=== PATIENT | female | born 1950 | race Caucasian/White ===

== ENCOUNTER → 2023-09-25 12:56 | Outpatient (REF) | payer OTHER, SELFPAY ==
[2023-09-25 09:31] LABS: Potassium 4.2 mmol/L (3.5-5.1)
== END ==
LOC: RESEARCH 12:56
PROVIDERS: REFERRING PHYSICIAN Internal Medicine Cardiovascular Disease
DX: I50.20 Unspecified systolic (congestive) heart failure (principal)
CPT/HCPCS: 36415; 82565; 84132

== ENCOUNTER 2025-05-09 16:25 | Inpatient (IN) | payer MEDICARE, SELFPAY ==
[2025-05-09] VITALS (15 sets, daily range): BP systolic 106–165; BP diastolic 64–89; BMI 36.9
--- NOTE | 2025-05-09 07:58 | ITS.CL.CATH ---
Tobacco Stripper Hand - Catheterization
Cardiac Catheterization
Procedure Report:
LEFT HEART CATHETERIZATION
Date of Procedure: May 09, 2025
Referring: Romel Larson MD
PROCEDURES:
1. Left heart catheterization, coronary angiogram.
2. Moderate sedation.
3. Selective graft angiography
INDICATION: This is a 74-year-old diabetic female with aggressive coronary artery disease. She has known chronic total occlusion of the right coronary artery as well as prior stenting of the proximal to mid circumflex and proximal to mid LAD. In
July 2018 she experienced crescendo anginal symptoms and was referred for coronary angiography in the setting of a non-ST segment elevation myocardial infarction. The right coronary artery was found to be 100% occluded (known from prior
studies) and the circumflex had a new high-grade ostial stenosis with moderate diffuse mid LAD atherosclerosis. She was chest pain-free and the decision was made to refer her for surgical revascularization. She was seen by CT surgery and underwent
coronary artery bypass grafting on 07/17/2018 with a LIMON-diagonal and SVG-apical LAD beyond the stents. The circumflex and RCA distal vessels were not surgically revascularized as adequate targets could not be identified. She returned to the
catheterization laboratory several days later and underwent successful stenting of the ostial circumflex with placement of a 3.0 x 15 mm Xience stent. She has been having progressive dyspnea on exertion with PET CT stress from 05/03/25 showing
large area of moderately reduced anteroseptal perfusion, mildly reduced inferior perfusion, and moderately reduced septal perfusion defects which are reversible consistent with ischemia. She is now being referred for left heart catheterization and
coronary angiogram.
ACCESS: Left radial artery, 6 Indonesian sheath, under ultrasound guidance
HEMODYNAMICS : (mmHg)
AO (s/d) : 153/80
LVEDP: 35
CORONARY ANGIOGRAPHY
Dominance: Right
LEFT MAIN: Normal
LEFT ANTERIOR DESCENDING: The LAD arises normally from the left main. There is a 60% stenosis in the mid LAD beyond the proximal stent. The LIMON graft to the diagonal branch is widely patent as described below. There are overlapping mid to distal
LAD stents which are 100% occluded but the apical LAD fills via the SVG-LAD apex.
CIRCUMFLEX: The stent at the ostium of the circumflex remains widely patent. The overlapping proximal to mid circumflex stents also remain widely patent. OM1 is small and has an 80% proximal stenosis. OM 2 is larger and widely patent. The CAD
appears stable when compared angiographically to prior cath from 2022.
RIGHT CORONARY ARTERY: Known to be 100% occluded
GRAFT ANGIOGRAPHY:
1. LIMON-diagonal: The LIMON graft to the largest diagonal branch remains patent.
2. SVG-apical LAD: The saphenous vein graft to the apical LAD remains widely patent. The saphenous vein graft is large and patulous and is anastomosed to a small caliber apical LAD. It appears similar to prior heart catheterization from 2022
SEDATION: 37 minutes of procedural sedation was utilized. IV Midazolam and IV Fentanyl were administered. An independent medical voucher clerk was present to assist with and help manage the patient's level of consciousness and physiologic status.
RADIATION SUMMARY: Fluoro Time (min): 22.2, Dose (mGy): 622, DAP (Gy.cm2) : 47.5
Closure Device: There were no immediate intra-procedural complications. The sheath was pulled in the equipment operator/laborer/supervisor and a vascular-band applied to the right wrist for radial artery hemostasis using the patent hemostasis technique.
CONCLUSIONS
1. Patent LIMON and SVG grafts with significant [place] coronary artery disease. No obvious PCI targets. The CAD appears stable when compared angiographically to prior cath from 2022.
2. Significantly elevated LVEDP at 35 mmHg
RECOMMENDATIONS
1. Wean radial band per protocol. Monitor right hand perfusion and for bleeding from the radial site following removal of the vascular-band following trans-radial access.
2. Continue aggressive medical therapy and risk factor modification for secondary CAD prevention. Inpatient admission for aggressive IV diuresis given progressive dyspnea on exertion in the setting of significantly elevated LVEDP.
3. Medical optimization of goal-directed medical therapy and outpatient referral for cardiac rehab.
Bette Rosado MD, FACC, [facility]
Copy to: Romel Larson MD
[2025-05-09 10:35] LABS: Hematocrit 40.6 % (37.0-47.0); Hemoglobin 13.5 g/dL (12.0-16.0); Mean Corp Hgb Conc. 33.3 g/dL (33.0-37.0); Mean Corpuscular Volume 98.3 fL (81.0-99.0); Platelet Count 110 10^3/uL (130-400); Red Cell Dist. Width 12.8 % (11.5-14.5)
[2025-05-09 10:39] LABS: INR 1.03; PT 13.6 Sec (11.4-14.6)
[2025-05-09 10:40] LABS: APTT 27.0 Sec (23.4-35.0)
[2025-05-09 10:45] LABS: Blood Urea Nitrogen 16 mg/dl (7-17); Calcium 9.7 mg/dl (8.4-10.2); Carbon Dioxide 26 mmol/L (22-30); Chloride 107 mmol/L (98-107); Estimated Creatinine Clearance 51 ml/min; Glucose 140 mg/dl (70-99); Potassium 4.2 mmol/L (3.5-5.1); Sodium 139 mmol/L (135-145); eGFR 59.86
[2025-05-09] MEDS: LOW STRENGTH ASPIRIN 324 MG PO (11:04)
[2025-05-09] MEDS: NSS 266 ML IV (11:06)
--- NOTE | 2025-05-09 16:07 | HPS.HSE ---
Family Physician
-
Family Physician: Ml Henry MD
Chief Complaint
-
appointment for the stent due to fluid around her heart
History of Present Illness
74-year-old diabetic female with aggressive coronary artery disease. She has known chronic total occlusion of the right coronary artery as well as prior stenting of the proximal to mid circumflex and proximal to mid LAD. In July 2018 she
experienced crescendo anginal symptoms and was referred for coronary angiography in the setting of a non-ST segment elevation myocardial infarction. She has been having progressive dyspnea on exertion with PET CT stress from 05/03/25 showing large
area of moderately reduced anteroseptal perfusion, mildly reduced inferior perfusion, and moderately reduced septal perfusion defects which are reversible consistent with ischemia. She is now being referred for left heart catheterization and
coronary angiogram.
Currently before the admission she had shortness of breath any time even at rest, she has no orthopnea, she felt mild chest discomfort, pressure, non radiating, not reproducibility associated with exertion while on walking at steps, been over
increasing for the past 1 year. She used to go for follow up appoint with DR Larson, extruder operator vertical , and worsening, medications which includes lasix 40 mg BID , non complaince, spirinolactone 25 mg BID however she taking once a day, and stopped
ranolozine 2 weeks ago-by extruder operator vertical, she used to monitor her weight regularly and has no change recently.
Medical History
Past Medical History
Past Medical History: Reports CAD, HTN, Hypercholesterolemia and IDDM
Past Surgical History: Reports Orthopedic
Social History
Tobacco: Non-smoker
Alcohol: Other (4-5 days in a week couple of wine )
Drug: None
Personal:
Living: With Family
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
Family History
Family History: CAD
Allergies / Home Medications
Home Medications
bisoprolol fumarate 5 mg tablet 2.5 mg PO DAILY Blood pressure 07/31/20
Alirocumab [Praluent Pen] 150 mg SQ .Q2W ON Fridays01/23/21
aspirin 81 mg tablet 324 mg PO DAILY 09/12/22
furosemide 40 mg tablet (Lasix) 40 mg PO BID #180 tabs 09/12/22
levothyroxine 75 mcg tablet 75 mcg PO DAILY 09/12/22
omega-3 fatty acids 1,000 mg PO DAILY 09/12/22
ranolazine 500 mg tablet,extended release,12 hr 500 mg PO BID 05/09/25
spironolactone 25 mg tablet 25 mg PO BID 05/09/25
Allergies reflects when Allergies were last updated in [facility].
Home Medications with original date entered in [facility]
Allergy/Medication List:
Allergies
Allergy/AdvReac Type Severity Reaction Status Date / Time
Penicillins Allergy Rash Verified 09/12/22 07:52
Lytuhci-YYN-LsU Reductase Allergy PE PT Verified 05/09/25 16:30
Inhibitor (Fwdrbba-Ktn-Qhg MUSCLE
Reductase Inhibitor) CRAMPS
Review of Systems
-
History Source: Patient
A 12 point ROS was completed and negative except as noted: Yes
Physical Exam
Vital Signs
Vital Signs
Temp Pulse Resp BP Pulse Ox
98.5 F 68 18 126/78 97
05/09/25 10:23 05/09/25 12:10 05/09/25 10:23 05/09/25 11:06 05/09/25 12:10
Physical Exam
General: Well Developed and No Apparent Distress
HEENT: Moist mucous membranes and Oxygen
Respiratory: Clear
Cardiac: S1/S2 and Bradycardia
GI: Soft, Non Tender, Non Distended and Normal Bowel Sounds
Musculoskeletal: No Clubbing, Edema, Left Lower Extremity and Edema, Right Lower Extremity
Skin: Warm
Neuro: AO x 3
Hematologic/Lymphatic: No Lymphadenopathy
Laboratory Results
-
12/01/25 10:08
05/09/25 10:08
Laboratory Results
PT 13.6 Sec (11.4-14.6) 05/09/25 10:08
INR 1.03 05/09/25 10:08
APTT 27.0 Sec (23.4-35.0) 05/09/25 10:08
Impression/Plan
-
IMPRESSION AND PLAN:
74-year-old female with a known history of diabetes, congestive heart failure with reduced ejection fraction, hypothyroidism admitted today for the shortness of breath and underwent for left heart catheterization;
# Dyspnea secondary to congestive heart failure with reduced ejection fraction:
vitals: 122/78, CT 68, rr- 20, sa - 98%
o/e: no reproducibility of the pain, pitting edema mild ,
Hb- 13.5, BUN_ 16, GFR-59.86 , CR1.00, cr clearance 51
On today's left heart catheterization findings:
There are overlapping mid to distal LAD stents which are 100% occluded but the apical LAD fills via the SVG-LAD apex.
CIRCUMFLEX: The stent at the ostium of the circumflex remains widely patent. The overlapping proximal to mid circumflex stents also remain widely patent. OM1 is small and has an 80% proximal stenosis. OM 2 is larger and widely patent. The CAD
appears stable when compared angiographically to prior cath from 2022.
Master Sonar Technician recommendation includes:
1. Continue aggressive medical therapy and risk factor modification for secondary CAD prevention. Inpatient admission for aggressive IV diuresis given progressive dyspnea on exertion in the setting of significantly elevated LVEDP.
2. Medical optimization of goal-directed medical therapy and outpatient referral for cardiac rehab.
stain allergy-- muscle sores she is currently taking alirocumab intead of that every other week.
Cardiac PET/CT nuclear stress showing large area of mildly reduced anteroseptal perfusion, mildly reduced inferior perfusion and moderately reduced septal perfusion defects which are reversible consistent with ischemia.
Stress Risk is high risk study (>3% NM or /year)
Systolic function is moderately reduced. The ejection fraction is 29%.
CLASS 3 NYHA -- marked limitation, comfortable at rest, but less than ordinary activity, reduced to 29%
Current plan includes:
Monitor vitals,
Repeat echo
Repeat cholesterol- lipid panel
Monitor i/o
Monitor weight
Order tsh
Educate for compliance with medication,
cardiology consultation,
low sodium diet
avoid alcohol.
Continue IV Lasix 40 mg
Continue bisoprolol fumarate 2.5 mg oral
Continue spironolactone 25 mg oral
# Hyperlipidemia:
Continue alirocumab pen for her hyperlipidemia state
# Recently diagnosed type II diabetes:
Currently not on any medication
Recent HbA1c 7.1
Consult dietitian.
follow up with pcp for her blood glucose level in future
# Hypothyroidism:
Continue levothyroxine 75 mcg
# pt, ot consult.
fluid restriction 48 oz,
low cholesterol diet
DVT: Lovenox 40 mg SQ
Code: Full code
Disposition: Home
[2025-05-09] MEDS: LASIX 80 MG IV (17:27)
--- NOTE | 2025-05-09 17:53 | W.PN.UPDATE ---
Update Note
Progress Note Update
HPI: 74-year-old F with PMH CAD s/p CABG, hypothyroidism, HTN, HDL (intolerant to statin), recently diagnosed DM (A1C 7%), p/w SOB/WARD with recent outpt cardiac PET scan showing low EF at 29%.
Patient underwent left heart cath on admission, which showed 2 patent grafts, but with elevated end-diastolic pressure, hence hospitalist was requested for admission to treat acute on chronic CHF.
A/P:
# acute on chronic systolic CHF
# h/o CAD s/p CABG
Status post left heart cath on admission 05/09/2025, 2 patent grafts, but noted elevated end-diastolic pressure,
Check updated echo
Continue IV Lasix per cardiology,
Daily weights, I&O
Fluid restrict
Continue prior to admission bisoprolol and Aldactone
Card consult
# Hyperlipidemia
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
# Recently diagnosed type II diabetes
Has not yet started with medication
Recent HbA1c 7.1%
Consult dietitian for carb control diet education
Pt can follow up with PCP for diabetes management
# Hypothyroidism
Continue levothyroxine 75 mcg
DVT ppx: Lovenox SQ
FC
--- NOTE | 2025-05-09 19:14 | PTCARENOTE ---
~1600: Patient brought from [facility] via bed with laborer drying department staff. Pt AOx4, NSR 70s on tele, SBP 150s-160s, RA satting 96%. L radial TR band in place, site has some old blood in window at this time, but does not appear to be currently oozing with no
hematoma present. Hospitalist resident at bedside for assessment. Admission charting completed with patient and patient oriented to unit and call ambrose system. All needs met at this time, call ambrose within reach.
~[id number]: Patient at bedside. Air started to be removed from TR band, no oozing or hematoma noted. Pt standby assist to bathroom. 80 IV lasix given per order. All needs met at this time, call ambrose within reach.
~[id number]: Patient standby assist to bathroom, voiding in hat. I/Os charted. VSS. All needs met at this time, call ambrose within reach. Handoff report given to nightshift RN.
[2025-05-10] VITALS (13 sets, daily range): BP systolic 81–139; BP diastolic 49–86; PULSE 61–69; O2SAT 95–97; BMI 35.8
[2025-05-10] MEDS: SYNTHROID 75 MCG PO (04:29)
[2025-05-10 05:00] LABS: Blood Urea Nitrogen 17 mg/dl (7-17); Calcium 9.6 mg/dl (8.4-10.2); Carbon Dioxide 25 mmol/L (22-30); Chloride 105 mmol/L (98-107); Estimated Creatinine Clearance 56 ml/min; Glucose 133 mg/dl (70-99); HDL Cholesterol 35 mg/dl; LDL Cholesterol, Calculated 92 mg/dl; Potassium 4.0 mmol/L (3.5-5.1); Sodium 139 mmol/L (135-145); Very Low Density Lipoprotein 48 mg/dl (0-30); eGFR > 60.00
[2025-05-10 05:02] LABS: Hematocrit 39.5 % (37.0-47.0); Hemoglobin 13.4 g/dL (12.0-16.0); Mean Corp Hgb Conc. 33.9 g/dL (33.0-37.0); Mean Corpuscular Volume 98.8 fL (81.0-99.0); Platelet Count 87 10^3/uL (130-400); Red Cell Dist. Width 12.9 % (11.5-14.5)
--- NOTE | 2025-05-10 06:13 | PTCARENOTE ---
Left radial dressing intact. No bleeding or hematoma noted. Cap refill <2sec, +radial pulse Some soft ecchymosis around site unchanged. Patient resting comfortably.
--- NOTE | 2025-05-10 07:49 | W.PN.HOSP.TC ---
Addendum entered and electronically signed by Siri Bonilla MD 05/10/25 16:54:
I saw and evaluated the patient independently. I reviewed and discussed the resident�s note and agree with findings and plan as documented by Dr. Paul.
GENERAL: well developed, well nourished, female in no apparent distress
HEENT: NC/AT--off O2
HEART: regular rate and rhythm, +S1, +S2
LUNGS : clear to auscultation bilaterally
ABDOM: soft, nontender, nondistended, + bowel sounds
EXT: no cyanosis, clubbing, or edema
NEUROLOGIC: grossly intact
Acute on chronic systolic congestive heart failure exacerbation--s/p left heart cath 05/09-- patent graphs--medical management--ECHO with EF of 41% with stage 1 diastolic dysfunction, dilated left atrium--cleared for d/c by cards--cont aldactone,
bisoprolol, PO lasix--fluid restriction
Hyperlipidemia--Statin allergy so currently she is taking alirocumab instead of statin weekly once.
Recently diagnosed type II diabetes--Currently not on any medication--Recent HbA1c 7.1
Hypothyroidism--Continue levothyroxine 75 mcg
DVT proph--Lovenox 40 mg SQ
Code status-- Full code
Original Note:
Today's Communication/Plan
-
discharge and follow upo with oven press tender today
Assessment / Plan
Assessment / Plan
74-year-old F with PMH CAD s/p CABG, hypothyroidism, HTN, HDL (intolerant to statin), recently diagnosed DM (A1C 7%), p/w SOB/WARD with recent outpt cardiac PET scan showing low EF at 29%.
Patient underwent left heart cath on admission, which showed 2 patent grafts, but with elevated end-diastolic pressure, hence hospitalist was requested for admission to treat acute on chronic CHF.
#Acute on chronic systolic congestive heart failure:
S/p left heart cath 05/09,
Going for echo today
Continue IV Lasix
Daily weight
I's/O
Continue prior to admission bisoprolol 2.5 mg, Aldactone 25 mg
lasix oral medication
# Hyperlipidemia:
Statin allergy so currently she is taking alirocumab instead of statin weekly once.
# Recently diagnosed type II diabetes:
Currently not on any medication
Recent HbA1c 7.1
Consult dietitian.
follow up with pcp for her blood glucose level in future.
# Hypothyroidism:
Continue levothyroxine 75 mcg
# pt, ot consult.
fluid restriction 48 oz,
low cholesterol diet
DVT: Lovenox 40 mg SQ
Code: Full code
Disposition: Home
plan:
lasix 40 mg po
discharge today
Anticipated Discharge: Today
Subjective/Interval History
-
Date of Service: May 10, 2025
74-year-old F with PMH CAD s/p CABG, hypothyroidism, HTN, HDL (intolerant to statin), recently diagnosed DM (A1C 7%), p/w SOB/WARD with recent outpt cardiac PET scan showing low EF at 29%. Patient underwent left heart cath on admission, which showed
2 patent grafts, but with elevated end-diastolic pressure, hence hospitalist was requested for admission to treat acute on chronic CHF.
Overnight the patient felt her bloating got reduced and feeling much better, she did not experience shortness of breath, palpitation, dizziness, chest discomfort after yesterday's left heart catheterization.
Mild bruit is present at the port of entry for the catheter on her right side arm.
Vitals: BP 139/83, CT 77, RR 18, temp 97.8, O2 sats 94
WBC 5--4 low, hemoglobin 13.5--13.4
Chemistry WNL, blood glucose 133 high,
Lipid panel :
triglycerides 244, VLDL 48 high, LDL 92, TSH 4.98 high with free T41.05 Within normal limit.
Objective Data
-
Labs:
Laboratory Results
05/10/25
04:21
WBC 4.0 L
Hgb 13.4
Hct 39.5
Plt Count 87 L D
Sodium 139
Potassium 4.0
Chloride 105
Carbon Dioxide 25
BUN 17
Creatinine 0.9
Glucose 133 H
Calcium 9.6
Vital Signs:
Vital Signs
Temp Pulse Resp BP Pulse Ox
97.8 F 77 18 139/83 94
05/10/25 07:48 05/10/25 07:46 05/10/25 07:48 05/10/25 07:46 05/10/25 07:48
I&O
05/09/25 05/10/25 05/11/25
06:59 06:59 06:59
Output Total 1450 / 1450 300 / 300
Balance -1450 / -1450 -300 / -300
Review of Systems
-
History Source: Patient
All other systems: Reviewed and negative
Physical Exam
-
General: Well Developed, Well Nourished and No Apparent Distress
Respiratory: Clear to Auscultation
Cardiac: Regular Rhythm and S1/S2
GI: Soft, Nontender and Nondistended
Genito-urinary: No Costovertebral Tender
Skin: Warm
Neuro: AO x 3
Hematologic / Lymphatic: No Lymphadenopathy
Psych: Calm
[2025-05-10] MEDS: LOW STRENGTH ASPIRIN 81 MG PO (08:21)
[2025-05-10] MEDS: ALDACTONE 12.5 MG PO (08:21)
[2025-05-10] MEDS: ZEBETA 2.5 MG PO (08:21)
--- NOTE | 2025-05-10 10:12 | PTOTSP ---
PATIENT ABLE TO MOBILIZE INDEPENDENTLY ON LEVEL SURFACES WELL ELEVATIONS. PATIENT AWARE OF LEFT US RESTRICTION DUE TO LEFT RADIAL ACCESS. PATIENT ONLY COMPLAINT WITH MOBILITY WAS SHORTNESS OF BREATH HOWEVER HEART RATE 81 AND ROOM AIR SPO2-97%.
DR. GUZMAN IN ROOM AT END OF SESSION AND WAS MADE AWARE. PATIENT REQUIRING NO FURTHER ACUTE CARE SKILLED P.T. WILL DISCHARGE FROM P.T. SERVICES.
--- NOTE | 2025-05-10 11:14 | W.PN.CARDCBS ---
Addendum entered and electronically signed by Yany Min PA-C 05/10/25 16:55:
Results of echo reviewed with patient at bedside. EF felt to be essentially the same, at 41%, previously was 45%. Continue current medical therapy. Discussed with patient to call for weight gain, worsening shortness of breath, or conversely with
lightheadedness/dizziness, low blood pressure, or weight loss. Discussed with nursing
Addendum entered and electronically signed by Adi Hampton MD 05/10/25 13:27:
I saw and examined the patient.
The AUTOMOTIVE PROFESSIONAL or PA's note was reviewed and I agree with the note.
Comment: General: Well developed, well nourished in NAD.
Neck: Supple, no JVD, HJR, carotids +2 B/L, no bruits bilaterally.
Heart: Non displaced PMI, RRR, no murmurs, No S3, S4, no rubs.
Lungs: Scattered rhonchi
Extremities: No clubbing, cyanosis or edema bilaterally.
Neuro: Grossly nonfocal, awake, alert and oriented x3.
Patient ambulating in hallway without issue. Changed to p.o. Lasix. Stable cardiology status for discharge. Check echocardiogram. Follow-up has been arranged. Discussed with primary service
Original Note:
Today's Communication / Plan
-
follow BPs
consider po lasix 40mg daily with spironolactone 12.5mg daily upon DC
echo pending
OP cardiac follow up to be arranged
plan for DC to home later today
Impression / Plan
-
Primary Head Of Business Development: Dr. DONNA Larson
Assessment:
Abnormal PET/CT stress test
Acute on chronic HFpEF
CAD s/p LAD PCI 2005, LAD and circ PCI 2013, circ PCI 2016, CABG x2 LIMON to D2, SVG to apical LAD 07/17/2018, circ PCI 07/21/2018, known GAUGE CHECKER of RCA felt to be non-graftable at time of CABG
stable CAD by cath 05/09/25
Hypothyroidism
HLD with statin intolerance, on praluent
HTN
Diabetes
Hypothyroidism
Nonischemic cardiomyopathy, EF 45-50% with prior jardiance intolerance (UTIs)
Chronic mild LFT elevation
s/p R hip replacement 08/2020
ECHO 09/24/22: EF 45 to 50%, basal inferior wall may be more hypokinetic than others, stage I diastolic dysfunction, trace MR, trace AI, trace TR
Plan:
- Patient presented after abnormal PET CT stress test for elective cardiac catheterization completed 05/09/2025. She was noted to have stable CAD, however LVEDP was significantly elevated at 35 therefore admitted postprocedure for diuresis.
- She was given 80 mg IV Lasix on 05/09 with good response. If weights are accurate, is down 6 pounds overnight. Creatinine stable at 0.9
- BPs low this AM, patient feels tired. will reassess. will plan to start po lasix later today pending BP trend
- prior to admission was not on diuretic and was only taking aldactone 1-2 times per week. would consider continuing aldactone 12.5mg daily and adding lasix 40mg po daily upon DC with BMP/proBNP in 1 week
- check echo, last from 2022 with results as above
- will arrange OP cardiac follow up
- likely for DC later today
- d/w nursing
Progress Note - Head Of Business Development
Subjective
Date of Service: May 10, 2025
reports good response to lasix overnight. no CP
Objective
Labs:
05/10/25 04:21
05/10/25 04:21
Labs
Hgb 13.4 g/dL (12.0-16.0) 05/10/25 04:21
Hct 39.5 % (37.0-47.0) 05/10/25 04:21
Plt Count 87 10^3/uL (130-400) L D 05/10/25 04:21
PT 13.6 Sec (11.4-14.6) 05/09/25 10:08
INR 1.03 05/09/25 10:08
APTT 27.0 Sec (23.4-35.0) 05/09/25 10:08
Sodium 139 mmol/L (135-145) 05/10/25 04:21
Potassium 4.0 mmol/L (3.5-5.1) 05/10/25 04:21
BUN 17 mg/dl (7-17) 05/10/25 04:21
Creatinine 0.9 mg/dL (0.6-1.0) 05/10/25 04:21
Glucose 133 mg/dl (70-99) H 05/10/25 04:21
Vital Signs and I&O:
Vital Signs
Temp Pulse Resp BP Pulse Ox
97.8 F 60 18 104/61 94
05/10/25 07:48 05/10/25 11:00 05/10/25 07:48 05/10/25 09:32 05/10/25 07:48
Vital Signs
Temp Pulse Resp BP Pulse Ox
97.8 F 60 18 104/61 94
05/10/25 07:48 05/10/25 11:00 05/10/25 07:48 05/10/25 09:32 05/10/25 07:48
Intake & Output
05/08/25 05/09/25 05/10/25 05/11/25
07:59 07:59 07:59 07:59
Output Total 1750 / 1750
Balance -1750 / -1750
Physical Exam
Physical Exam
GEN: No distress, awake, alert, oriented x3. sitting in chair
HEENT: supple, anicteric, mmm, eomi
LUNGS: CTA B/L, no wheezes/rales
CV: Reg, S1/S2, no murmur
ABD: soft, BS+, NT/ND
EXT: No cyanosis, clubbing, edema
NEURO: Gross non-focal
SKIN: Warm, pink, dry. No rash. L wrist with mild logan-incisional ecchymoses, NTTP
[2025-05-10] MEDS: LASIX 40 MG PO (12:47)
--- NOTE | 2025-05-10 15:38 | CARDSERVLU ---
Echocardiogram with Lumason completed after protocol screening completed. Allergies verified.
Patent IV site: __existing site 20P RH___
IV site flushed with 0.9% NaCl pre and post administration.
Diluted bolus method utilized to enhance visualization of ventricular carcamo.
Total volume given: __7.0__ mL in divided doses under direction echosonographer.
Patient tolerated all procedures well without complications.
--- NOTE | 2025-05-10 17:28 | W.DCSUMMARY ---
Addendum entered and electronically signed by Siri Bonilla MD 05/11/25 07:08:
Read, reviewed, and agree. See same day progress note for additional details. Time spent coordinating care, DC planning, review of DC plan of care with resident, transition of care, review of records in EMR, med rec, consults, notes, d/w
consultants, nursing, family, and CM = 45 minutes
Original Note:
Discharge Summary
Discharge Data
Date of Admission: 05/09/25
Date of Discharge: 05/10/25
Total time spent discharging patient (in min): 45 minutes
-
Pending Results: No
Hospital Course
Discharging Physician : Dr Irene Lipscomb MD
Carlos Livingston MD
Disposition : Home
Primary care physician : Dr Ml Henry.
Principal Discharge diagnosis : Acute on chronic systolic congestive heart failure exacerbation--status post left heart cath 05/09
Chronic Discharge diagnosis :
# Hyperlipidemia--lipid panel : Triglycerides 244, VLDL 48 high, LDL 92, continued with alirocumab instead of statin because she is allergic with statin which includes muscle spasm.
# Recently diagnosed type 2 diabetes--was not managed at hospital but given her HbA1c 7.1, recommended her to follow-up with primary care physician after the discharge within a week to start her on medication.
# Hypothyroidism continued with levothyroxine 75 mcg, her TSH was 4.98 high with free T4 within normal limit and recommended to follow-up with primary care physician in future.
# PT, OT, dietitian consulted
Hospital Course : On 05/09 one 74-year-old female with a known history of diabetes, aggressive coronary artery disease, chronic total occlusion of the right coronary artery with prior stenting of the proximal to mid circumflex, proximal to mid left
anterior descending artery. She went for outpatient [facility] for her progressive dyspnea on exertion with PET/CT stress taken from 05/03 showed large area of moderately reduced anteroseptal perfusion, mildly reduced inferior perfusion,
and moderately reduced septal perfusion defects and referred for left heart catheterization and coronary angiogram. Her car sales associate asked her to admit her [facility] on 05/09. At the time of presentation she felt shortness of breath
anytime even at rest, associated with mild chest discomfort, pressure in nature nonradiating and not reproducible chest discomfort associated with exertion while on walking for few steps. She was continuously following with Dr. Larson [place]ills
[facility] car sales associate. She was not complaints with her medications include Lasix 40 mg, spironolactone 25 mg. She underwent left heart catheterization with patent LIMON and SVG grafts with significant [place] coronary artery disease. [facility]
managed with IV Lasix 40 mg, and she was stable throughout the course of admission. While on discharge car sales associate recommended to manage with aspirin 81 mg, furosemide 40 mg oral, bisoprolol 2.5 mg, spironolactone 12.5 mg daily and advised to
follow-up with outpatient [employer] [facility] along with her proBNP/BNP in future. She was on DVT prophylaxis of enoxaparin, low-cholesterol diet, with full code.
IMPORTANT:
If your symptoms worsen when you get home, go to the Emergency Room if you cannot reach a doctor, or call 911
Important imaging findings :
On 05/10 echo:
1. Normal left ventricular size. Mildly reduced systolic function estimated at 41% by Wilson's method of disc. The inferolateral wall is hypokinetic. The midanteroseptal wall is hypokinetic in some views. Stage 1 diastolic dysfunction.
2. Mildly dilated left atrium left atrium.
3. Trileaflet aortic valve. Trace aortic insufficiency.
4. No mitral regurgitation.
5. Trace tricuspid regurgitation. Estimated pulmonary artery pressure of 19 mmHg assuming a right atrial pressure of 3 mmHg.
6. When compared to the most recent echocrdiogram from 09/24/22, there has been no significant change. The LVEF is estiamted at 41% on the current study and was estimated 45-50% on the prior study. Some views are now suggestive of an anteroseptal
wall motion abnormality.
Procedure findings :
On 05/09 left cardiac catheter findings:
1. Patent LIMON and SVG grafts with significant [place] coronary artery disease. No obvious PCI targets. The CAD appears stable when compared angiographically to prior cath from 2022.
2. Significantly elevated LVEDP at 35 mmHg
Discharge Plan
-
Patient Disposition: Home (Routine Discharge)
Discharge Diagnosis/Procedures: Coronary Artery Disease s/p CABG, hypothyroidism, Hypertension, Hyperlipidemia (intolerant to statin), recently diagnosed Diabetes Mellitus (A1C 7%)
Condition: Fair
Diet: Low Fat, Low Cholesterol, 2 Gram Sodium and Diabetic, Carb Controlled
Activity: No restrictions
Driving Restrictions: As prior to admission
Bathing Restrictions: None
Blood Work: BMP/proBNP in 1 week
Specialty Instructions: Weigh Daily- Call MD for wt gain/loss 3 lbs overnight/5 lbs in 1 week
Instructions: *DCA Heart Failure Instructions
Stand Alone Forms: DC Instructions- Cath/EP Lab
Referrals:
Romel Larson MD [Active, Cardiology]
Ml Henry MD [Family Provider, Family Practice]
Additional Discharge Medication Instructions: - Follow up with PCP within 1 week of discharge
- Follow up with [facility] within a week of discharge.
- Complete lab work (BMP, ProBNP) in one week
- Take Spironolactone 12.5 mg everyday (1/2 tab of 25 mg)
- Ranolazine currently on hold by car sales associate for concerns of prolonged QTc. Please speak with Dr. Larson before resuming this medication.
- Continue aspirin 81 mg chewable.
Prescriptions:
New
aspirin 81 mg Tablet,Chewable
81 mg PO DAILY Qty: 30 0RF
furosemide [Lasix] 40 mg tablet
40 mg PO DAILY Qty: 90 3RF
Continued
bisoprolol fumarate 5 MG tablet
2.5 mg PO DAILY
Alirocumab [Praluent Pen] 150 MG/ML Pen.Injctr
150 mg SQ .Q2W ON FRIDAYS
Rx Instructions:
for cholesterol
levothyroxine 75 mcg Tablet
75 mcg PO DAILY
omega-3 fatty acids Capsule
1,000 mg PO DAILY
spironolactone 25 mg Tablet
25 mg PO DAILY
Rx Instructions:
1/2 tab once a day
Held
ranolazine 500 mg Tablet Extended Release 12 Hr
500 mg PO DAILYPRN PRN (Reason: if chest pain)
Hold Instructions: Resume on 08/26/25.
Discontinued
aspirin 81 mg Tablet
324 mg PO DAILY
furosemide [Lasix] 40 mg tablet
40 mg PO BID Qty: 180 5RF
Discharge Orders:
Discharge Patient (As Directed); Ordered 05/10/25
Ordered By: Carlos Paul
Care Plan Goals
Care Plan Goals:
Problem: Readiness for enhanced knowledge related to diagnosis and treatment plan
Goal: Understand your diagnosis and treatment plan needs, including medications if applicable.
Instructions: Know your diagnosis, underlying causes and treatment plan options, including medications if applicable. Consult with your health care team to learn about your diagnosis and treatment plan, including medications if applicable.
Discharge Date and Time
Discharge Date/Time: 05/10/25 17:20
Print Language: [id number]
== END 2025-05-10 17:20 | disposition home or self-care (01) | DRG 286 ==
LOC: IVU 16:25
PROVIDERS: Internal Medicine Interventional Cardiology; Nurse Practitioner; ADMITTING PHYSICIAN Hospitalist; ATTENDING PHYSICIAN Internal Medicine; FAMILY PHYSICIAN Family Medicine
PROC: B2131ZZ Fluoroscopy of Multiple Coronary Artery Bypass Grafts using Low Osmolar Contrast (ICD-10-PCS; 2025-05-09)
PROC: 4A023N7 Measurement of Cardiac Sampling and Pressure, Left Heart, Percutaneous Approach (ICD-10-PCS; 2025-05-09)
PROC: B2111ZZ Fluoroscopy of Multiple Coronary Arteries using Low Osmolar Contrast (ICD-10-PCS; 2025-05-09)
DX: I11.0 Hypertensive heart disease with heart failure (principal); I50.23 Acute on chronic systolic (congestive) heart failure; I25.10 Atherosclerotic heart disease of native coronary artery without angina pectoris; E11.9 Type 2 diabetes mellitus without complications; E78.00 Pure hypercholesterolemia, unspecified; E03.9 Hypothyroidism, unspecified; I42.8 Other cardiomyopathies; Z96.641 Presence of right artificial hip joint; I25.2 Old myocardial infarction; Z88.0 Allergy status to penicillin; Z88.8 Allergy status to other drugs, medicaments and biological substances; Z95.1 Presence of aortocoronary bypass graft; Z79.890 Hormone replacement therapy
CPT/HCPCS: 80048; 80061; 84439; 84443; 85027; 85610; 85730; 93306; 93459; 97162; 97166; 99152; 99153; C1769; C1894; Q9950; Q9967